=== PATIENT | male | born 1950 | race Caucasian/White ===

== ENCOUNTER 2023-08-28 11:02 | Outpatient (CLI) | payer MEDICARE ==
--- NOTE | 2023-08-28 14:44 | XRAY Report ---
PROCEDURE: Shoulder 2+V RT INDICATIONS: S/P TOTAL REPLACEMENT OF RIGHT SHOULDER TECHNIQUE: 4 views of the shoulder were acquired. COMPARISON: None. FINDINGS: Bones: No fractures or dislocations. Right distal clavicle osteotomy. Arthroplasty at the humeral h ead. Moderate degenerative changes seen. No suspicious bony lesions. Visualized ribs appear intact. Soft tissues: No suspicious soft tissue calcifications. The visualized lungs are within normal limi ts. IMPRESSION: Humeral head arthroplasty projects in expected location. Moderate degenerative changes. Reviewed by: Noah Archuleta MD on 08/28/2023 2:42 PM PDT Approved by: Noah Archuleta MD on 08/28/2023 2:42 PM PDT Station ID: [id number]
== END 2023-08-28 11:03 | disposition home or self-care (01) ==
LOC: DI 11:02
DX: Z96.611 Presence of right artificial shoulder joint (principal); M19.011 Primary osteoarthritis, right shoulder